=== PATIENT | female | born 1960 | race Caucasian/White ===

== ENCOUNTER → 2017-11-21 | Outpatient (CLI) | payer OTHER ==
--- NOTE | 2017-11-21 15:04 | MR ---
Thoracic spine MRI HISTORY: Back pain Multiplanar multisequence imaging through the thoracic spine correlated to prior thoracic MRI 10/05/20 11 There is multilevel spondylosis, endplate discogenic marrow signal change similar to prior exam. Susp ect an underlying spinal curvature. There is no significant central canal stenosis, foraminal encroac hment, or sizable disc herniation. Thoracic vertebral bodies show preserved height. Disc spaces are s table and relatively maintained. Thoracic cord signal is normal. IMPRESSION: Essentially stable findings. Thoracic spondylosis. Mild spinal curvature.
== END | disposition home or self-care (01) ==
LOC: RADMRIMAIN 10:39
PROVIDERS: ATTEND Nurse Practitioner Family
DX: M47.814 Spondylosis without myelopathy or radiculopathy, thoracic region (principal); M43.8X4 Other specified deforming dorsopathies, thoracic region
CPT/HCPCS: 72146

== ENCOUNTER → 2017-11-23 | Outpatient (CLI) | payer OTHER ==
--- NOTE | 2017-11-23 12:46 | US ---
EXAMINATION TYPE: US transvaginal DATE OF EXAM: 11/23/2017 COMPARISON: CT 02/23/2012 CLINICAL HISTORY: R10.2 Pelvic Pain. TECHNIQUE: Transvaginal (TV) Date of LMP: 19 years ago EXAM MEASUREMENTS: Uterus: 4.6 x 2.2 x 3.4 cm Endometrial Stripe: 0.1 cm Right Ovary: Not visualized on this exam Left Ovary: Not visualized on this exam 1. Uterus: Anteverted. Multiple tiny echogenic foci visualized throughout uterine body 2. Endometrium: wnl 3. Right Ovary: Obscured by overlying bowel gas 4. Left Ovary: Obscured by overlying bowel gas 5. Bilateral Adnexa: wnl as visualized, limited visualization due to large amount of peristalsing sanjuana wel 6. Posterior cul-de-sac: wnl IMPRESSION: Somewhat limited exam. Normal endometrium.
== END | disposition home or self-care (01) ==
LOC: RADUSWWP 10:48
PROVIDERS: ATTEND Obstetrics & Gynecology
DX: R10.2 Pelvic and perineal pain (principal)
CPT/HCPCS: 76830

== ENCOUNTER → 2018-09-06 | Outpatient (CLI) | payer OTHER ==
--- NOTE | 2018-09-11 15:06 | P.ARTDOP ---
Arterial Doppler LOWER EXTREMITY ARTERIAL DOPPLER: DATE OF SERVICE: 09/06/2018 Reason for study: Pain buttocks and calf. Doppler waveforms: Multiphasic bilaterally throughout. Pulse volume recording: Normal configuration. Pressure gradients: None. Ankle-brachial indices: Greater than 1 bilaterally. Toe pressures: 117 on the right, 123 on the left Impression: Normal study.
== END ==
LOC: RADUSWWP 09:31
PROVIDERS: ATTEND Family Medicine
DX: I70.213 Atherosclerosis of native arteries of extremities with intermittent claudication, bilateral legs (principal)
CPT/HCPCS: 93923

== ENCOUNTER → 2019-04-02 | Outpatient (CLI) | payer OTHER ==
--- NOTE | 2019-04-02 11:48 | CTL ---
EXAMINATION TYPE: CT Low Dose Lung DATE OF EXAM ORDERED: 04/02/2019 HISTORY: . Lung cancer screening CT DLP: 80.[address] CTDI: 2.6 mGy Automated exposure control for dose reduction was used. SCREENING VISIT: Initial COMPARISON: None TECHNIQUE: Low dose computed tomography scan was performed through the chest at 1 mm thick sections a nd reconstructed images in the coronal plane at [address] DIAGNOSTIC QUALITY: Satisfactory FINDINGS: LUNG NODULES: Present, detailed below: 1. A 0.3 cm calcific density in the periphery of the left midlung. Series 4 image 150. 2. A 0.6 cm calcification at the inferior right lung field. Series 4 image 166. 3. 0.3 cm calcification at the right lung base. Series 4 image 190. 4. 0.3 cm density right middle lobe lung base. Series 4 image 190. LUNGS: COPD: Severity: None Fibrosis: Severity: None Lymph nodes: None Other findings: None RIGHT PLEURAL SPACE: Effusion: None Calcification: None Thickening: None Pneumothorax: None LEFT PLEURAL SPACE: Effusion: None Calcification: None Thickening: None Pneumothorax: None HEART: Heart Size: Normal Coronary calcification: Mild Pericardial effusion: None OTHER FINDINGS: Upper abdomen: Normal Bony thorax: Normal Supraclavicular region: Normal Other: Thyroid appears prominent and may extend towards the suprasternal notch. This could be evaluat ed with ultrasound. The ascending thoracic aorta at the level of main pulmonary artery is 2.4 cm guaman nt main pulmonary bifurcation is 2.5 cm. IMPRESSION: 1. Benign findings follow-up exam in one year with low-dose CT screening chest FOLLOW UP CT CHEST RECOMMENDATION: Low-dose CT screening chest per protocol CT LUNG RAD: Lung rad 2
== END | disposition home or self-care (01) ==
LOC: RADCTMAIN 11:08
PROVIDERS: ATTEND Family Medicine
DX: Z12.2 Encounter for screening for malignant neoplasm of respiratory organs (principal); F17.210 Nicotine dependence, cigarettes, uncomplicated

== ENCOUNTER → 2019-04-22 | Outpatient (CLI) | payer BC ==
--- NOTE | 2019-04-22 12:12 | MM ---
Reason for exam: screening (asymptomatic). Last mammogram was performed 7 years ago. History: Patient is postmenopausal. Family history of breast cancer in maternal aunt and breast cancer in mother. Physical Findings: A clinical breast exam by your physician is recommended on an annual basis and results should be correlated with mammographic findings. MG 3D Screening Mammo W/Cad Bilateral CC and MLO view(s) were taken. Prior study comparison: May 01, 2012, bilateral digital screening mammo w/CAD. September 21, 2010, bilateral digital screening mammogram. There are scattered fibroglandular densities. There are benign appearing round calcifications in the left breast. There is no discrete abnormality. ASSESSMENT: Benign, BI-RAD 2 RECOMMENDATION: Routine screening mammogram of both breasts in 1 year.
== END | disposition home or self-care (01) ==
LOC: RADMAMWWP 10:11
PROVIDERS: ATTEND Family Medicine
DX: Z12.31 Encounter for screening mammogram for malignant neoplasm of breast (principal); Z80.3 Family history of malignant neoplasm of breast
CPT/HCPCS: 77063; 77067

== ENCOUNTER → 2019-06-16 | Outpatient (CLI) | payer BC ==
--- NOTE | 2019-06-16 14:54 | CT ---
EXAMINATION TYPE: CT lumbar spine wo con DATE OF EXAM: 06/16/2019 2:43 PM COMPARISON: MRI dated 02/23/2012 HISTORY: Lower back pain. No known injury CT DLP: 498 mGycm Automated exposure control for dose reduction was used. Unenhanced CT of the lumbar spine was performed. Bone and soft tissue window settings are submitted as well as coronal and sagittal reconstructions. No acute fracture or subluxation. Prevertebral and paraspinal musculature appear normal. Redemonstration of small 1.8 cm cyst in the rendon perior aspect of the left kidney. Scattered calcified atheromatous changes of the abdominal aorta. L1-L2: Normal disc space height. No disc herniation protrusion or central stenosis. No facet joint arthropathy. No evidence for foraminal encroachment. L2-L3: Diffuse disc bulge eccentric to the left causing mild left-sided neural foraminal narrowing. N o spinal canal stenosis. L3-L4: Diffuse disc bulge eccentric to the left causing mild left-sided neural foraminal narrowing. N o spinal canal stenosis. L4-L5: Normal disc space height. No disc herniation protrusion or central stenosis. No facet joint arthropathy. No evidence for foraminal encroachment. L5-S1: Normal disc space height. No disc herniation protrusion or central stenosis. No facet joint arthropathy. No evidence for foraminal encroachment. IMPRESSION: No acute fracture or subluxation. Mild degenerative disc disease at L2-3 and L3-4.
== END | disposition home or self-care (01) ==
LOC: RADCTMAIN 14:28
PROVIDERS: ATTEND Family Medicine
DX: M51.36 Other intervertebral disc degeneration, lumbar region (principal)
CPT/HCPCS: 72131

== ENCOUNTER → 2020-08-20 | Outpatient (CLI) | payer BC ==
--- NOTE | 2020-08-20 17:34 | CTL ---
EXAMINATION TYPE: CT Low Dose Lung DATE OF EXAM ORDERED: 08/20/2020 HISTORY: . Lung cancer screening CT DLP: 97.[address] CTDI: 2.8 mGy Automated exposure control for dose reduction was used. SCREENING VISIT: COMPARISON: 08/20/2020 TECHNIQUE: Low dose computed tomography scan was performed through the chest at 1 mm thick sections a nd reconstructed images in the coronal plane at [address] DIAGNOSTIC QUALITY: Satisfactory FINDINGS: LUNG NODULES: 1. A 0.3 cm calcific density in the periphery of the left midlung. 2. A 0.6 cm calcification at the inferior right lung field. 3. 0.3 cm calcification at the right lung base. 4. 0.3 cm density right middle lobe lung base. 5. 0.2 cm nodule right lung apex stable. 6. there are 2 1 mm nodule seen on axial image 34 within the right upper lobe retrospectively stable. Additional subpleural nodule also stable measuring approximately 1 mm. Additional subpleural nodules measuring approximately 2 mm in the left upper lobe on image 32 and 46 stable 7. 2 mm nodule anterior lateral segment right upper lobe image 62 retrospectively stable #8 4 mm nodu le anterior right upper lobe image 77 stable There are additional subpleural nodules bilaterally measuring 1 mm and a 3 mm nodule anterior segment left upper lobe stable. Subpleural nodule measuring 3 mm left upper lobe anteriorly image 119 stable additional anterior nodu le seen medially near the pleural reflection adjacent to the sternum measuring 2 mm stable. LUNGS: Interlobular septal thickening and evidence of diffuse emphysematous changes compatible with COPD. No consolidative pneumonia. No pleural effusion. No pneumothorax. No overt failure. There is atherosclerotic change of the aorta. Ascending aorta measures approximately 3.7 cm compatibl e with ectasia. Coronary artery calcification and atherosclerotic change of the aorta. Aorta measures approximately 3.7 cm in greatest dimension. PLEURAL SPACE: No pleural effusion or thickening. No pleural calcifications or pneumothorax. OTHER FINDINGS: Surgical clips in the gallbladder fossa are noted. Hypertrophic and degenerative changes spine. Indet erminate left renal lesion seen measuring 7 Hounsfield units most likely in the basis of a cyst. Calc ified right thyroid nodule measuring 1.2 cm IMPRESSION: 1. COPD with stable numerous bilateral pulmonary nodules and calcified granuloma. 2. Coronary artery atherosclerotic disease. 3. Right thyroid calcified nodule. 4. Correlate for pulmonary fibrosis. FOLLOW UP CT CHEST RECOMMENDATION: Follow-up annual exam recommended in [address] LUNG RAD: Lung-Rad 2 Benign Appearance or Behavior
== END | disposition home or self-care (01) ==
LOC: RADCTMAIN 16:18
PROVIDERS: ATTEND Family Medicine
DX: Z12.2 Encounter for screening for malignant neoplasm of respiratory organs (principal); J44.9 Chronic obstructive pulmonary disease, unspecified; J84.10 Pulmonary fibrosis, unspecified; F17.210 Nicotine dependence, cigarettes, uncomplicated

== ENCOUNTER → 2020-11-15 | Outpatient (CLI) | payer BC ==
[2020-11-15 16:53] LABS: Basophils # (A) 0.1 k/uL (0-0.2); Basophils % (A) 1 %; Eosinophils # (A) 0.6 k/uL (0-0.7); Eosinophils % (A) 4 %; HCT 50.9 % (34.0-46.0); HGB 16.1 gm/dL (11.4-16.0); Lymphocytes # (A) 4.4 k/uL (1.0-4.8); Lymphocytes % (A) 30 %; MCH 29.9 pg (25.0-35.0); MCHC 31.7 g/dL (31.0-37.0); MCV 94.1 fL (80.0-100.0); Mean Platelet Volume 6.9; Monocytes # (A) 0.6 k/uL (0-1.0); Monocytes % (A) 4 %; Neutrophils # (A) 8.5 k/uL (1.3-7.7); Neutrophils % (A) 59 %; Platelet Count 296 k/uL (150-450); RDW 13.1 % (11.5-15.5); WBC 14.4 k/uL (3.8-10.6)
[2020-11-15 23:05] LABS: INR 0.91 (0.90-1.11); Prothrombin Time 9.9 sec (9.9-11.9)
[2020-11-16] LABS: Urine Creatinine 83.2 mg/dL
[2020-11-16 02:38] LABS: African American GFR (CKD) 92.9 (60.0-200.0); Albumin 4.7 g/dL (3.80-4.90); Albumin/Globulin Ratio 2.14 (1.60-3.17); Anion Gap 13.2 mmol/L (4.00-12.00); Calcium 9.5 mg/dL (8.7-10.3); Carbon Dioxide 23.8 mmol/L (21.6-31.8); Globulin 2.2 g/dL (1.6-3.3); Non-African American GFR(CKD) 80.1 (60.0-200.0); Potassium 3.7 mmol/L (3.5-5.5); Total Bilirubin 0.2 mg/dL (0.2-1.2); Total Protein 6.9 g/dL (6.2-8.2)
== END | disposition home or self-care (01) ==
LOC: LABWHC1 16:30
PROVIDERS: ATTEND Family Medicine
DX: E11.9 Type 2 diabetes mellitus without complications (principal); Z79.899 Other long term (current) drug therapy
CPT/HCPCS: 36415; 80053; 82043; 82570; 84443; 85025; 85610

== ENCOUNTER → 2020-11-17 | Outpatient (CLI) | payer BC ==
[2020-11-17 16:03] LABS: Appearance,Urine Clear (Clear); Bilirubin,Urine Negative (Negative); Blood,Urine Moderate (Negative); Color,Urine Yellow; Glucose,Urine (UA) 4+ (Negative); Ketones,Urine Negative (Negative); Leukocyte Esterase,Urine Negative (Negative); Nitrite,Urine Negative (Negative); Protein,Urine Negative (Negative); RBC,Urine 20 /hpf (0-5); Specific Gravity,Urine 1.039 (1.001-1.035); Squamous Epithelial Cell,Urine <1 /hpf (0-4); Urobilinogen,Urine <2.0 mg/dL (<2.0); WBC,Urine 1 /hpf (0-5)
== END | disposition home or self-care (01) ==
LOC: LABWHC1 15:12
PROVIDERS: ATTEND Family Medicine
DX: N39.0 Urinary tract infection, site not specified (principal)
CPT/HCPCS: 81001; 87086

== ENCOUNTER → 2020-12-20 | Outpatient (CLI) | payer BC ==
[2020-12-20 15:00] LABS: Appearance,Urine Clear (Clear); Bilirubin,Urine Negative (Negative); Blood,Urine Negative (Negative); Color,Urine Yellow; Glucose,Urine (UA) 4+ (Negative); Ketones,Urine Negative (Negative); Leukocyte Esterase,Urine Negative (Negative); Nitrite,Urine Negative (Negative); Protein,Urine Negative (Negative); Specific Gravity,Urine 1.025 (1.001-1.035); Urobilinogen,Urine <2.0 mg/dL (<2.0)
[2020-12-20 21:38] LABS: HCT 42.6 % (37.2-46.3); HGB 13.3 g/dL (12.0-15.0); MCHC 31.2 g/dL (32.0-37.0); MCV 95.9 fL (80.0-97.0); Platelet Count 357 X 10*3/uL (140-440); RBC 4.44 X 10*6/uL (4.10-5.20); RDW 13.2 % (11.5-14.5); WBC 11.07 X 10*3/uL (4.50-10.00)
== END | disposition home or self-care (01) ==
LOC: LABWHC1 13:45
PROVIDERS: ATTEND Family Medicine
DX: N39.0 Urinary tract infection, site not specified (principal); B89 Unspecified parasitic disease
CPT/HCPCS: 36415; 81003; 85027; 87086

== ENCOUNTER → 2021-07-22 | Outpatient (CLI) | payer BC | END | disposition home or self-care (01) | LOC: RADUSWWP 09:06 | PROVIDERS: ATTEND Family Medicine | DX: I73.9 Peripheral vascular disease, unspecified (principal) | CPT/HCPCS: 93922 ==

== ENCOUNTER → 2021-09-20 | Outpatient (CLI) | payer BC ==
--- NOTE | 2021-09-22 02:44 | CTL ---
EXAMINATION TYPE: CT Low Dose Lung DATE OF EXAM ORDERED: 09/20/2021 HISTORY: Personal history of tobacco use.. Lung cancer screening CT DLP: [address] CTDI: 2.2 mGy Automated exposure control for dose reduction was used. SCREENING VISIT: Yes COMPARISON: 08/20/2020 TECHNIQUE: Low dose computed tomography scan was performed through the chest at 1 mm thick sections a nd reconstructed images in multiple planes at 1 mm and [address] DIAGNOSTIC QUALITY: Satisfactory FINDINGS: LUNG NODULES: Present, detailed below: Calcified granulomas bilaterally. 3 mm pulmonary nodule of the right upper lobe (4:77) appears new. Additional sub-4 mm nodules appear unchanged. LUNGS: COPD: Severity: Mild, predominantly at the lung apices Fibrosis: Severity: Mild Lymph nodes: No lymphadenopathy. Other findings: None RIGHT PLEURAL SPACE: Effusion: None Calcification: None Thickening: None Pneumothorax: None LEFT PLEURAL SPACE: Effusion: None Calcification: None Thickening: None Pneumothorax: None HEART: Heart Size: Normal Coronary calcification: Present Pericardial effusion: None OTHER FINDINGS: Upper abdomen: Left renal cyst. Bony thorax: Degenerative changes of the spine. Supraclavicular region: Unremarkable. Other: None IMPRESSION: 1. New 3 mm pulmonary nodule of the right upper lobe. Otherwise pulmonary nodules appear unchanged ve rsus 2020 comparison. 2. Emphysematous changes. 3. Calcified coronary artery disease. CT LUNG RAD AND CT CHEST RECOMMENDATION: Lung-Rad 2 Benign Appearance or Behavior: Continue annual sc reening with LDCT in 12 months. S Modifier (other clinically significant findings): S
== END | disposition home or self-care (01) ==
LOC: RADCTMAIN 18:23
PROVIDERS: ATTEND Family Medicine
DX: R91.1 Solitary pulmonary nodule (principal); Z87.891 Personal history of nicotine dependence
CPT/HCPCS: 71271

== ENCOUNTER → 2022-09-22 | Outpatient (CLI) | payer BC, OTHER ==
--- NOTE | 2022-09-22 09:29 | CTL ---
EXAMINATION TYPE: CT Low Dose Lung DATE OF EXAM ORDERED: 09/22/2022 COMPARISON: 09/20/2021 HISTORY: . Low Dose CT Lung Screening CT DLP: 70.[address] CTDI: 2.1 mGy IV CONTRAST USED: None. SCREENING VISIT: First visit COMPARISON: None. TECHNIQUE: Low dose computed tomography scan was performed through the chest at 1 millimeter thick se ctions and reconstructed images in the coronal plane at [address] DIAGNOSTIC QUALITY: Satisfactory FINDINGS: LUNG NODULES: Multiple calcified granulomas seen bilaterally. No concerning pulmonary nodules seen at this time. LUNGS: COPD: Severity: None Fibrosis: Severity:None Lymph nodes: None Other findings: None RIGHT PLEURAL SPACE: Effusion: None Calcification: None Thickening: None Pneumothorax: None LEFT PLEURAL SPACE: Effusion: None Calcification: None Thickening: None Pneumothorax: None HEART: Heart Size: Mildly enlarged Coronary calcification: Present Pericardial effusion: None OTHER FINDINGS: Upper abdomen: No significant abnormality Bony thorax: Degenerative changes Supraclavicular region: No significant abnormalityOther: No significant abnormalityI IMPRESSION: Benign FOLLOW UP CT CHEST RECOMMENDATION: Follow-up screening in one year CT LUNG RAD: LUNG RAD CATEGORY 2 benign
== END | disposition home or self-care (01) ==
LOC: RADCTMAIN 08:56
PROVIDERS: ATTEND Family Medicine
DX: Z12.2 Encounter for screening for malignant neoplasm of respiratory organs (principal); Z87.891 Personal history of nicotine dependence
CPT/HCPCS: 71271

== ENCOUNTER → 2023-01-22 | Outpatient (CLI) | payer BC, OTHER ==
--- NOTE | 2023-01-22 15:32 | BD ---
EXAMINATION TYPE: Axial Bone Density DATE OF EXAM: 01/22/2023 CLINICAL HISTORY: 62 years old Female. ICD-10 CODE: Z78.0 POST MENOPAUSAL WITHOUT HRT Height: 5 ft 4 1/2 in Weight: 149 FRAX RISK QUESTIONS: Alcohol (3 or more units per day): yes Family History (Parent hip fracture): no Glucocorticoids (More than 3mos): no (Ex: prednisone, prednisolone, methylprednisolone, dexamethasone, and hydrocortisone). History of Fracture in Adulthood: no Secondary Osteoporosis: 1. Type 1 Diabetes: type 2 2. Hyperthyroidism: no 3. Menopause before 45: yes 4. Malnutrition: no 5. Chronic liver disease: no Rheumatoid Arthritis: no Current Tobacco Use: yes RISK FACTORS HISTORY OF: Surgery to Spine/Hip(right/left)/Wrist (right/left): lrft hip replacement When: 3-4 years ago Family History of Osteoporosis: no Active: yes Diet low in dairy products/other sources of calcium: no Postmenopausal woman: yes Take estrogen and/or progesterone medications: no Lost more than 2 inches in height since high school: no Frequent falls: no Poor Health: fair Hyperparathyroidism: no Adrenal Insufficiency: no MEDICATIONS: Additional Medications: percocet, metoprolol, jardiance, gabapentin, Additional History: carpal tunnel surg EXAM MEASUREMENTS: Bone mineral densitometry was performed using the [employer]. Bone mineral density as measured about the Lumbar spine is: ----- L1-L4(G/cm2): 0.832 T Score Values are as follows: ----- L1: -2.6 ----- L2: -3.3 ----- L3: -2.4 ----- L4: -3.4 ----- L1-L4: -2.9 Z Score Values are as follows: ----- L1: -1.3 ----- L2: -1.9 ----- L3: -1.1 ----- L4: -2.0 ----- L1-L4: -1.6 prev long ago Bone mineral density about the R hip (g/cm2): 0.821 T Score values are as follows: -----R Neck: -1.6 -----R Total: -1.0 Z Score values are as follows: -----R Neck: -0.3 -----R Total: 0.0 prev done long ago FRAX%s: The graph provided illustrates a 11.1 % chance for a major osteoporotic fx and a 2.3 % chance for the hips probability for fx in 10 years time. IMPRESSION: Osteoporosis (T Score less than -2.5). There is increased fracture risk and therapy is usually indicated based on age. Re-Screen 1-2 years. NOTE: T-SCORE=SD OF THE YOUNG ADULT MEAN.
--- NOTE | 2023-01-23 17:20 | MM ---
Reason for Exam: Screening (asymptomatic). Last mammogram was performed 3 year(s) and 9 month(s) ago. Patient History: Menarche at age 10. First Full-Term at age 30. Late child-bearing (after 30). Left ovary removed at age 58. Right ovary removed at age 58. Hysterectomy at age 58. Postmenopausal. Maternal aunt had breast cancer. Mother had breast cancer. Risk Values: Cristina 5 year model risk: 3.4%. NCI Lifetime model risk: 14.7%. Prior Study Comparison: 09/21/2010 Bilateral Screening Mammogram, [facility]. 05/01/2012 Bilateral Screening Mammogram, [facility]. 04/22/2019 Bilateral Screening Mammogram, [facility]. Tissue Density: There are scattered fibroglandular densities. Findings: Analyzed By CAD. Pattern appears symmetrical and stable. No suspicious groups of microcalcifications, spiculated or lobular masses, architectural distortion or other secondary signs of malignancy are mammographically apparent. Overall Assessment: Benign, BI-RAD 2 Management: Screening Mammogram of both breasts in 1 year. A negative mammogram report should not preclude additional follow up of suspicious palpable abnormalities. Patient should continue monthly self breast exam. A clinical breast exam by your physician is recommended on an annual basis and results should be correlated with mammographic findings. Electronically signed and approved by: Brandon Brush D.O. Radiologis
== END | disposition home or self-care (01) ==
LOC: RADMAMWWP 01-12 07:39 → RADBDWWP 14:19
PROVIDERS: ATTEND Family Medicine
DX: Z12.31 Encounter for screening mammogram for malignant neoplasm of breast (principal); M85.89 Other specified disorders of bone density and structure, multiple sites; M81.0 Age-related osteoporosis without current pathological fracture; E11.9 Type 2 diabetes mellitus without complications; Z78.0 Asymptomatic menopausal state; Z80.3 Family history of malignant neoplasm of breast
CPT/HCPCS: 77063; 77067; 77080

== ENCOUNTER → 2023-05-23 | Outpatient (CLI) | payer OTHER ==
--- NOTE | 2023-05-23 17:49 | FL ---
EXAMINATION TYPE: FL barium swallow w SBFT DATE OF EXAM: 05/23/2023 CLINICAL INDICATION: 63-year-old female R13.10, dysphagia, GERD. Intermittent constipation and diarrh ea. COMPARISON: None Total Fluoroscopy Time: 2 minutes 30 seconds 79 images obtained. DOSE AREA PRODUCT (DAP) UGY*M,MGY*CM: 25 FINDINGS: The swallowing mechanism is normal and hypopharyngeal anatomy is preserved. Mild anterior endplate s pondylosis C5-C6 without any significant impression onto the back wall of the cervical esophagus. The cervical and thoracic portions have a normal course and caliber. There is esophageal dysmotility with mild tertiary peristaltic waves and blunted secondary stripping waves. This results in prolonged pooling of contrast in the esophagus especially when the patient is prone/supine. The mucosa is normal and no persistent filling defect is encountered. There is a tiny sliding hiatal hernia seen on some images. Unable to elicit any gastroesophageal refl ux during the course of the exam Following administration of barium, serial films were carried out to 3 hours. Barium is seen to reach the colon at 1 hour. Additional time was taken to attempt further distention of the distal ileum. Loops of jejunum and ileum are compressed and examined under fluoroscopy. A few jejunal loops along t he left side of the abdomen show a somewhat thicker, ileal pattern. On the two-hour exam, some loops in the right side of the abdomen show a more feathery jejunal pattern. No flocculation or segmentation of barium though there does seem to be some dilution in the distal sm all bowel. The small bowel loops have a normal-caliber. Mucosal pattern is otherwise within normal limits. No ex trinsic process is suspected. IMPRESSION: 1. Some scattered loops show reversal of fold pattern between the jejunum and ileum. These are nonspe cific findings but may be seen in the setting of celiac disease. Clinically correlate. Overall normal small bowel transit time of one hour. 2. Moderate esophageal dysmotility with prolonged pooling of contrast in the esophagus especially whe n the patient is prone/supine. 3. Tiny sliding hiatal hernia. Gastroesophageal reflux was not seen during the course of the exam.
== END | disposition home or self-care (01) ==
LOC: RADFLMAIN 08:53
PROVIDERS: ATTEND Family Medicine
DX: K22.4 Dyskinesia of esophagus (principal); K59.00 Constipation, unspecified; K44.9 Diaphragmatic hernia without obstruction or gangrene; K21.9 Gastro-esophageal reflux disease without esophagitis; R13.10 Dysphagia, unspecified
CPT/HCPCS: 74220

== ENCOUNTER → 2023-11-12 | Outpatient (CLI) | payer OTHER ==
--- NOTE | 2023-11-13 14:54 | CTL ---
EXAMINATION TYPE: CT Low Dose Lung DATE OF EXAM: 11/12/2023 9:52 AM CLINICAL INDICATION:Female, 63 years old with history of Z12.2 SCREENING CA F17.210 NICOTINE DEPENDEN CE, CI; h/o tobacco use x30 years 1ppd current smoker , history of tobacco use. COMPARISON: 09/22/2022 TECHNIQUE: CT scan of the chest obtained without contrast from approximately the lung apices through the upper abdomen. Axial, coronal and sagittal reformatted images were obtained. Low dose technique w as utilized for nodule screening purposes. CT DLP: 60.5 mGycm, Automated exposure control for dose reduction was used. CT Contrast: IV contrast used: None. Oral contrast used: None. FINDINGS: Lack of intravenous contrast and low dose technique limits the evaluation of the vascular and soft ti ssue structures. LUNGS: No evidence of pulmonary fibrosis. No evidence of focal consolidation, pneumothorax or pleural effusion. There are emphysematous changes bilaterally, mild/moderate with an upper lobe predominance Nodules: There are calcified nodules redemonstrated scattered throughout both lungs consistent with benign rem ote granulomatous disease. In the right lower lobe peripherally subpleural image 114 series 4, there is a 4 mm noncalcified mitul d round nodule which was not clearly present before. PLEURA: No sizeable pleural effusion or pneumothorax. AIRWAY: Patent and unremarkable. LOWER NECK: Small peripherally calcified nodule suggested deep in the right thyroid lobe.. MEDIASTINUM: No gross evidence of adenopathy. HEART: Normal heart size. Moderate coronary artery calcification and/or stents. No appreciable perica rdial effusion. VASCULATURE: Moderate atherosclerotic calcifications of the aorta and branches. Ascending aorta is 3 .7 CM, descending is 2.4 CM. Aorta is considered ectatic in its ascending segment. Pulmonary trunk measures 2.7 CM, normal in size. Vessels otherwise not further assessed without contrast. SOFT TISSUES/LYMPH NODES: Limited visualization because of the [id number]. Unremarkable soft tissu es. No axillary adenopathy. UPPER ABDOMEN: No significant findings. Colonic diverticula are present. MUSCULOSKELETAL: Mild disc degeneration changes are present throughout the thoracolumbar spine. No a cute findings. IMPRESSION: New 4 mm subpleural solid nodule in the right lower lobe, probably benign. CT LUNG RAD AND CT CHEST RECOMMENDATION: Lung-Rad 3 Probably Benign: 6 month follow-up LDCT. C Modifier (Personal history of lung cancer?): No. S Modifier (Other clinically significant or potentially significant findings?): No. Other significant or potentially significant abnormalities: None. Recommend smoking cessation (if current smoker), or continuation of smoking cessation (if prior smoke r). Annual screening for lung cancer with low-dose computed tomography is recommended in adults ages 55 to 77 years who have a 30 pack-year smoking history and currently smoke or have quit within the pa st 15 years. Screening should be discontinued once a person has not smoked for 15 years or develops a health problem that substantially limits life expectancy or the ability or willingness to have curat barney lung surgery. Lung rads 2021 [email or web address]
== END | disposition home or self-care (01) ==
LOC: RADCTMAIN 09:27
PROVIDERS: ATTEND Family Medicine
DX: Z12.2 Encounter for screening for malignant neoplasm of respiratory organs (principal); F17.210 Nicotine dependence, cigarettes, uncomplicated; R91.1 Solitary pulmonary nodule
CPT/HCPCS: 71271

== ENCOUNTER → 2024-02-07 | Outpatient (CLI) | payer OTHER ==
--- NOTE | 2024-02-07 14:36 | MM ---
Reason for Exam: Clinical finding. Last mammogram was performed 1 year(s) and 1 month(s) ago. Indicated Problems: Pain. Patient History: Menarche at age 10. First Full-Term at age 30. Late child-bearing (after 30). Left ovary removed at age 58. Right ovary removed at age 58. Hysterectomy at age 58. Maternal aunt had breast cancer. Mother had breast cancer. Risk Values: Cristina 5 year model risk: 3.5%. NCI Lifetime model risk: 14.3%. Tissue Density: The breasts are heterogeneously dense, which may obscure small masses. Findings: Analyzed By CAD. No evidence for mass or distortion. No suspicious consultations seen. Managed clinically. Overall Assessment: Negative, BI-RAD 1 Management: Screening Mammogram of both breasts in 1 year. . Results were given to the patient verbally at the time of exam. Patient should continue monthly self-breast exams. A clinical breast exam by your physician is recommended on an annual basis. This exam should not preclude additional follow-up of suspicious palpable abnormalities. Note on Cristina scores and lifetime risk: 1. A Cristina score greater than 3% is considered moderate risk. If this is the case, consider specialist referral to assess eligibility for a risk reducing agent. 2. If overall lifetime risk for the development of breast cancer is 20% or higher, the patient may qualify for future screening with alternating mammogram and breast MRI. Electronically signed and approved by: Sandip Addison M.D. Radiologis
== END | disposition home or self-care (01) ==
LOC: RADMAMWWP 09:58
PROVIDERS: ATTEND Family Medicine
DX: N64.4 Mastodynia (principal); R92.333 Mammographic heterogeneous density, bilateral breasts; Z80.3 Family history of malignant neoplasm of breast
CPT/HCPCS: 77062; 77066

== ENCOUNTER → 2024-05-19 | Outpatient (CLI) | payer OTHER ==
--- NOTE | 2024-05-19 12:26 | CTL ---
EXAMINATION TYPE: CT Low Dose Lung DATE OF EXAM ORDERED: 05/19/2024 HISTORY: Personal tobacco use, 45 pack-year history, current smoker. Lung cancer screening CT DLP: [address] CTDI: 2.1 mGy Automated exposure control for dose reduction was used. SCREENING VISIT: Follow-up COMPARISON: 11/12/2023, 09/22/2022. TECHNIQUE: Low dose computed tomography scan was performed through the chest at 1 mm thick sections a nd reconstructed images in multiple planes at 1 mm and [address] DIAGNOSTIC QUALITY: Satisfactory FINDINGS: Nodules: Stable scattered calcific granulomas. Stable anterior left upper lobe 3 mm pulmonary nodule (series 8, image 19). Stable pleural-based right lower lobe 4 mm pulmonary nodule (series 4, image 99 ). No new or enlarging pulmonary nodules. LUNGS: COPD: Severity: None Fibrosis: Severity: Mild Lymph nodes: None Other findings: None RIGHT PLEURAL SPACE: Effusion: None Calcification: None Thickening: None Pneumothorax: None LEFT PLEURAL SPACE: Effusion: None Calcification: None Thickening: None Pneumothorax: None HEART: Heart Size: Normal Coronary Calcification: Small Pericardial Effusion: None OTHER FINDINGS: Upper abdomen: Stable left renal 2.0 cm cyst. Bony thorax: No acute process. Increased thoracic kyphosis. Supraclavicular region: Stable peripherally calcified right thyroid lobe 1.4 cm nodule. Other: Mild atherosclerotic calcification of the aorta and its branches. IMPRESSION: Stable pulmonary nodules from prior exam. CT LUNG RAD AND CT CHEST RECOMMENDATION: Lung-Rad 2 Benign Appearance or Behavior: Continue annual sc reening with LDCT in 12 months. S Modifier (other clinically significant findings): None
== END | disposition home or self-care (01) ==
LOC: RADCTMAIN 11:42
PROVIDERS: ATTEND Family Medicine
DX: R91.8 Other nonspecific abnormal finding of lung field (principal); Z87.891 Personal history of nicotine dependence
CPT/HCPCS: 71271

== ENCOUNTER → 2024-09-16 | Outpatient (CLI) | payer OTHER ==
--- NOTE | 2024-09-16 08:35 | US ---
EXAMINATION TYPE: US abdomen complete DATE OF EXAM: 09/16/2024 COMPARISON: CT CLINICAL INDICATION: Female, 64 years old with history of R14.0 ABD DISTENSION; Pt states bloating TECHNIQUE: Grayscale and color Doppler imaging of the abdomen was performed. FINDINGS: EXAM MEASUREMENTS: Liver Length: 18.6 cm Gallbladder Wall: Surgically absent CBD: 1.2 cm Spleen: 9.0 cm Right Kidney: 11.2 x 4.3 x 5.0 cm Left Kidney: 10.2 x 5.2 x 5.2 cm ROUTE CDL DRIVER NOTES: Pancreas: wnl, tail obscured by overlying bowel gas, 2mm panc duct visualized Liver: Enlarged, heterogeneous, difficult to penetrate, possible fatty sparing near chris Gallbladder: Surgically absent Evidence for sonographic Gunn's sign: No CBD: Dilated for post laisha Spleen: Accessory spleen= 1.7 x 1.3 cm Right Kidney: No evidence of hydro Left Kidney: No evidence of hydro, cyst upper pole= 1.9 x 1.5 x 2.1 cm Upper IVC: wnl Abd Aorta: Ectatic as visualized on CT at 3cm distally The liver is homogenous. The intrahepatic portion of the IVC and proximal abdominal aorta are within normal limits. Common bile duct is unremarkable. The visualized portions of the pancreas are homog enous. The spleen is unremarkable. Kidneys are symmetric and free of hydronephrosis. No renal lesi ons are seen. IMPRESSION: Hepatic steatosis. [facility], , 09/16/2024 8:33 AM
== END | disposition home or self-care (01) ==
LOC: RADUSWWP 07:12
PROVIDERS: ATTEND Family Medicine
DX: K76.0 Fatty (change of) liver, not elsewhere classified (principal); R14.0 Abdominal distension (gaseous)
CPT/HCPCS: 76700

== ENCOUNTER → 2025-02-23 | Outpatient (CLI) | payer OTHER ==
--- NOTE | 2025-02-23 16:34 | XR ---
EXAMINATION TYPE: XR Hip Complete LT DATE OF EXAM: 02/23/2025 4:09 PM COMPARISON: 09/21/2010 CLINICAL INDICATION: Female, 65 years old with history of M70.72 OTHER BURSITIS OF HIP, LEFT HIP; PHH , pain TECHNIQUE: XR Hip Complete LT; Frontal and lateral views FINDINGS: Post arthroplasty changes, hardware is intact, alignment is appropriate. No evidence of fra cture. No evidence of any acute osseous pathology or joint dislocation. Surgical clip projects over t he pelvis. IMPRESSION: Hip arthroplasty with hardware intact and in appropriate alignment. No acute fracture. [facility], , 02/23/2025 4:31 PM
== END | disposition home or self-care (01) ==
LOC: RADXRMAIN 15:22
PROVIDERS: ATTEND Family Medicine
DX: M70.72 Other bursitis of hip, left hip (principal); Z96.642 Presence of left artificial hip joint
CPT/HCPCS: 73502

== ENCOUNTER → 2025-04-28 | Outpatient (CLI) | payer OTHER ==
--- NOTE | 2025-04-28 10:09 | US ---
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 TECHNIQUE: Systolic pressures were taken of the upper and lower extremity arteries with ankle-brachia l indices and toe brachial indices calculated bilaterally. History of: Smoker: Yes Hypertension: Yes Diabetic: Yes Hyperlipidemia: Yes TIA/CVA: No Previous Vascular Surgery: No CAD: Leaky valve MO: No Vascular Ulcers: No Claudication: Yes Gangrene: No FINDINGS: Doppler Waveforms: Right: Biphasic Left: Biphasic Brachial Artery systolic pressure: Right: 140 Left: 135 Posterior Tibial artery systolic pressure: Right: 142 Left: 116 Dorsalis Pedis artery systolic pressure: Right: 136 Left: 90 Toe artery systolic pressure: Right: 121 Left: 71 Ankle-Brachial Indices: Right: 1.01 Left: 0.83 Toe Brachial Indices: Right: 0.86 Left: 0.51 (Normal > 0.6; Mild 0.35 - 0.59, Moderate 0.12 - 0.34, Severe <0.12) IMPRESSION: BUZZ: Right: Normal 0.9 - 1.4, Recommendation: None Left: Mild Arterial Disease 0.8 - 0.9, Recommendation: None [facility], , 04/28/2025 10:06 AM
== END | disposition home or self-care (01) ==
LOC: RADUSWWP 08:55
PROVIDERS: ATTEND Family Medicine
DX: I70.213 Atherosclerosis of native arteries of extremities with intermittent claudication, bilateral legs (principal)
CPT/HCPCS: 93923

== ENCOUNTER → 2025-05-15 | Outpatient (CLI) | payer OTHER ==
--- NOTE | 2025-05-15 12:56 | MR ---
INDICATION: Patient age:Female; 65 years old; Reason for study: RADICULOPATHY, LUMBAR REGION; PHH. COMPARISONS: Lumbar spine radiographs 04/07/2025, CT lumbar spine 06/16/2019, MR thoracic spine 8, MR L-spine 02/23/2012, MR T-spine/L-spine 10/05/2011. TECHNIQUE: Multi planar, multi sequence imaging was performed utilizing: T1-weighted, T2-weighted, a nd turbo inversion recovery imaging of the lumbar spine. The patient was not given contrast. FINDINGS: The lumbar vertebral bodies do have preserved heights and alignment. Multilevel disc priyanka ccation without disc height loss. The conus medullaris and the distal spinal cord do appear unremark able with regards to their signal intensity and morphology. Post left hip arthroplasty changes with s usceptibility artifact on survey imaging. L1-L2: No significant disc pathology is identified. The spinal canal and neural foramen are patent. L2-L3: No significant disc pathology is identified. The spinal canal and neural foramen are patent. L3-L4: No significant disc pathology is identified. The spinal canal and neural foramen are patent. L4-L5: Minimal broad-based disc bulge. Ligamentum flavum buckling with some surrounding paraspinal ed huey. Minimal spinal canal narrowing. Bilateral facet arthropathy. No significant neural foraminal khadijah nosis. L5-S1: No significant disc pathology is identified. Ligamentum flavum buckling with some surrounding paraspinal edema. 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 Stable from prior exams. Partial visualization of left renal T2 hyperintense cyst measur ing up to 2.1 cm. IMPRESSION: 1. No definitive evidence for disc herniation or significant spinal canal stenosis. 2. 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 Most pronounced at L4-L5. [facility], , 05/15/2025 12:54 PM
== END | disposition home or self-care (01) ==
LOC: RADMRIMAIN 11:56
PROVIDERS: ATTEND Family Medicine
DX: M51.16 Intervertebral disc disorders with radiculopathy, lumbar region (principal); M47.26 Other spondylosis with radiculopathy, lumbar region; M99.73 Connective tissue and disc stenosis of intervertebral foramina of lumbar region
CPT/HCPCS: 72148